=== PATIENT | female | born 1940 | race Hispanic/Latino ===

== ENCOUNTER → 2016-10-07 | Outpatient (CLI) | payer MEDICARE, MEDICAID ==
--- NOTE | 2016-10-10 08:37 | RAD ---
EXAM DESCRIPTION: Hip,Right 2 Views CLINICAL HISTORY: RIGHT HIP PAIN COMPARISON: None Available. TECHNIQUE: AP/frog leg lateral FINDINGS: A right total hip replacement is in place in satisfactory alignment without evidence of loosening or dislocation or new fracture. The visualized portions of the right hemipelvis are unremarkable. Muscular structures appear significantly atrophic. IMPRESSION: Right hip replacement with no acute abnormality. Electronically signed by: Karlos Allen MD 10/10/2016 8:36 AM CDT
--- NOTE | 2016-10-10 08:38 | RAD ---
EXAM DESCRIPTION: Pelvis CLINICAL HISTORY: 75 years Female, RIGHT HIP PAIN COMPARISON: None. FINDINGS: A single view of the pelvis demonstrates a moderate degenerative changes and mild tilting of the lumbar spine towards the left with right hip replacement. The bony pelvis is intact without fracture or dislocation. A large left-sided phlebolith is noted. IMPRESSION: Satisfactory pelvis. Electronically signed by: Karlos Allen MD 10/10/2016 8:37 AM CDT
== END | disposition home or self-care (01) ==
LOC: RAD 09:32
PROVIDERS: ATTEND Orthopaedic Surgery
DX: M25.551 Pain in right hip (principal)

== ENCOUNTER → 2017-10-06 | Outpatient (CLI) | payer MEDICARE, MEDICAID ==
--- NOTE | 2017-10-06 14:30 | RAD ---
EXAM DESCRIPTION: Knee,Left Complete CLINICAL HISTORY: 76 years, Female, PAIN IN LEFT KNEE COMPARISON: None TECHNIQUE: Three views of the left knee FINDINGS: No fracture or dislocation. Bones appear normally mineralized with normal trabecular pattern. Narrowed appearance of medial and lateral compartments on frontal view. There is lateral joint line spurring. There is spurring of the tibial spines. Lateral view shows normal position of the patella. Prominent posterior superior patellar spurring. No suprapatellar knee joint effusion. Normal contour of quadriceps and patellar tendons. No abnormal patellar tilt or subluxation on patellar sunrise view. Prominent posterior patellar spurring is seen medially and laterally with lateral anterior femoral trochlear spurring. 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 Electronically signed by: Mati Alexis MD 10/06/2017 2:29 PM CDT
--- NOTE | 2017-10-06 14:32 | RAD ---
EXAM DESCRIPTION: Pelvis CLINICAL HISTORY: 76 years Female, PAIN IN LEFT HIP COMPARISON: Previous study October 07, 2016 FINDINGS: Calcification the left pelvis is unchanged. Total right hip arthroplasty is present. Degenerative changes are seen in the lower L-spine. No fracture of the bones of the pelvic ring. Proximal left femur appears intact. 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 Total right hip arthroplasty. No acute fracture or dislocation. Electronically signed by: Mati Alexis MD 10/06/2017 2:31 PM CDT
== END ==
LOC: RAD 09:11
PROVIDERS: ATTEND Orthopaedic Surgery
DX: M25.562 Pain in left knee (principal); M25.552 Pain in left hip; Z96.641 Presence of right artificial hip joint